=== PATIENT | male | born 1970 | race Caucasian/White ===

== ENCOUNTER 2023-03-20 19:18 | Emergency (ER) | payer BC ==
[2023-03-20 19:24] VITALS: BP 145/81; PULSE 64; RESP 17; TEMP 98.1; BMI 22.1
[2023-03-20] MEDS ORDERED: DIPHTH,PERTUSS(ACELL),TET 0.5 ML DISP.SYRIN IM ONE ×2 (19:36→19:39)
[2023-03-20] MEDS ORDERED: IBUPROFEN 400 MG TABLET (FP) PO ONE ×2 (19:45→20:10)
[2023-03-20] MEDS ORDERED: LIDOCAINE HCL 1%, 10 MG/ML (10ML VIAL) MDV ONE (19:59)
[2023-03-20] MEDS ORDERED: LIDOCAINE HCL 1%, 10 MG/ML (50 mL VIAL) SQ ONE (20:13)
== END 2023-03-20 21:18 | disposition home or self-care (01) ==
LOC: JERFT 19:18
PROC: 3E0234Z Introduction of Serum, Toxoid and Vaccine into Muscle, Percutaneous Approach (ICD-10-PCS; principal; 2023-03-20)
DX: S01.411A Laceration without foreign body of right cheek and temporomandibular area, initial encounter (principal); S60.511A Abrasion of right hand, initial encounter; S60.512A Abrasion of left hand, initial encounter; M79.641 Pain in right hand; V18.0XXA Pedal cycle driver injured in noncollision transport accident in nontraffic accident, initial encounter
CPT/HCPCS: 73130-TC-RT-FY; 90715; 99283-25